=== PATIENT | female | born 1945 | race Caucasian/White ===

== ENCOUNTER 2018-11-03 15:01 | Outpatient (CLI) | payer MEDICARE ==
--- NOTE | 2018-11-03 17:30 | RAD ---
TWO VIEWS LUMBOSACRAL SPINE: 11/03/18 COMPARISON: None. HISTORY: Tingling and back pain. FINDINGS: Two views of the lumbosacral spine shows the patient to be status post posterior fusion of L4 and L5 with right sided pedicle screws. There is scoliotic curvature of the spine. The intervertebral discs are narrowed. Vertebral bodies demonstrate normal height without fracture or subluxation. 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 IMPRESSION: Degenerative changes and postsurgical changes of the lumbar spine as above. POS: [facility]
== END 2018-11-03 15:02 | disposition home or self-care (01) ==
LOC: TBSIIMAG 15:01
PROVIDERS: ATTEND Neurological Surgery
DX: M43.16 Spondylolisthesis, lumbar region (principal); M47.816 Spondylosis without myelopathy or radiculopathy, lumbar region; M41.9 Scoliosis, unspecified; Z98.1 Arthrodesis status
CPT/HCPCS: 72100